=== PATIENT | female | born 1985 | race Caucasian/White ===

== ENCOUNTER 2021-03-02 12:57 | Outpatient (CLI) | payer OTHER | END 2021-03-02 12:58 | disposition home or self-care (01) | LOC: BICMRI 12:57 | PROVIDERS: ATTEND Family Medicine | DX: M51.37 Other intervertebral disc degeneration, lumbosacral region (principal); S34.9XXA Injury of unspecified nerves at abdomen, lower back and pelvis level, initial encounter; M54.40 Lumbago with sciatica, unspecified side; M51.27 Other intervertebral disc displacement, lumbosacral region; M47.816 Spondylosis without myelopathy or radiculopathy, lumbar region; M48.07 Spinal stenosis, lumbosacral region; Q05.7 Lumbar spina bifida without hydrocephalus | CPT/HCPCS: 72158 ==

== ENCOUNTER 2021-11-02 15:42 | Outpatient (CLI) | payer OTHER | END 2021-11-02 15:43 | disposition home or self-care (01) | LOC: SCSRAD 15:42 | PROVIDERS: ATTEND Neurological Surgery | DX: M54.16 Radiculopathy, lumbar region (principal) | CPT/HCPCS: 72100 ==

== ENCOUNTER 2021-12-27 14:32 | Outpatient (CLI) | payer OTHER | END 2021-12-27 14:33 | disposition home or self-care (01) | LOC: TBSIIMAG 14:32 | PROVIDERS: ATTEND Neurological Surgery | DX: M51.16 Intervertebral disc disorders with radiculopathy, lumbar region (principal); M51.17 Intervertebral disc disorders with radiculopathy, lumbosacral region | CPT/HCPCS: 72148 ==

== ENCOUNTER 2022-01-10 11:57 | Outpatient (CLI) | payer OTHER ==
[2022-01-10 13:50] LABS: Hemoglobin 12.2 g/dL (12.0-15.5); Mean Corpuscular HGB CONC 33.4 g/dL (32.0-36.0); Mean Corpuscular Hemoglobin 30.8 pg (27.0-33.0); Mean Corpuscular Volume 92.2 fl (81.6-98.3); Mean Platelet Volume 8.5 fl (7.4-10.4); Platelet Count 458 10x3/uL (150-450); RBC Distribution Width 12.3 % (11.5-14.5); Red Blood Cell (RBC) Count 3.96 10x6/uL (3.90-5.03); White Blood Cell (WBC) Count 8.6 10x3/uL (3.5-10.5)
[2022-01-10 14:04] LABS: INR-International Normal Ratio 0.9; PTT 30.7 sec (22.0-33.0)
[2022-01-10 22:46] LABS: SARS-CoV-2 PCR by NAA Not Detected (NotDetected)
== END 2022-01-10 11:58 | disposition home or self-care (01) ==
LOC: LABBT 11:57
PROVIDERS: ATTEND Neurological Surgery
DX: Z01.812 Encounter for preprocedural laboratory examination (principal); M51.27 Other intervertebral disc displacement, lumbosacral region; Z20.822 Contact with and (suspected) exposure to COVID-19
CPT/HCPCS: 85027; 85610; 85730; U0003; U0005

== ENCOUNTER 2022-01-15 05:37 | Day surgery (SDC) | payer OTHER ==
[2022-01-10 14:08] VITALS: BMI 25.9
[2022-01-15] MEDS ORDERED: Neomycin-Polymyxin 1 ML AMP ONE (06:10)
[2022-01-15] MEDS ORDERED: Bupivacaine PF 0.5% 30 ML VIAL ONE (06:10)
[2022-01-15] MEDS ORDERED: Thrombin 5000 UNITS/5 ML VIAL ONE (06:10)
[2022-01-15] MEDS ORDERED: EPINEPHrine 1 MG/ML AMP ONE (06:10)
[2022-01-15] MEDS ORDERED: SUGAMMADEX SODIUM 200 MG/2 ML VIAL ONE (06:18)
[2022-01-15] MEDS ORDERED: Fentanyl 250 MCG/5 ML VIAL ONE ×2 (06:18→09:33)
[2022-01-15] MEDS ORDERED: Promethazine HCl 25 MG/ML VIAL ONE (06:19)
[2022-01-15] MEDS ORDERED: Midazolam HCl 2 mg/2 ml Vial ONE (06:44)
[2022-01-15] MEDS ORDERED: Scopolamine 1.5 mg/72 hour Patch ONE (06:44)
[2022-01-15] MEDS ORDERED: Rocuronium Bromide 10 MG/ML (10ML VIAL) ONE (07:01)
[2022-01-15] MEDS ORDERED: Ondansetron PF 4 MG/2 ML Vial ONE (07:01)
[2022-01-15] MEDS ORDERED: Ketorolac Tromethamine 30 MG/ML VIAL ONE (07:01)
[2022-01-15] MEDS ORDERED: Lidocaine 1% PF 5 ML VIAL ONE (07:01)
[2022-01-15] MEDS ORDERED: PROPOFOL 200 MG/20 ML VIAL ONE (07:01)
[2022-01-15] MEDS ORDERED: Dexamethasone 20 MG/5 ML VIAL ONE (07:01)
[2022-01-15] MEDS ORDERED: Esmolol 100 MG/10 ML VIAL ONE (07:01)
[2022-01-15] MEDS ORDERED: Glycopyrrolate 0.2 MG/ML 5 ML SYRINGE ONE (07:01)
[2022-01-15] MEDS ORDERED: HYDROcodone/Acetaminophen 5/325 mg Tablet ONE (11:09)
== END 2022-01-15 12:28 | disposition home or self-care (01) ==
LOC: SDC 05:37
PROVIDERS: ATTEND Neurological Surgery
PROC: 0SB40ZZ Excision of Lumbosacral Disc, Open Approach (ICD-10-PCS; principal; 2022-01-15)
DX: M51.17 Intervertebral disc disorders with radiculopathy, lumbosacral region (principal); M51.36 Other intervertebral disc degeneration, lumbar region; M48.061 Spinal stenosis, lumbar region without neurogenic claudication; F17.200 Nicotine dependence, unspecified, uncomplicated; Z79.899 Other long term (current) drug therapy; Z88.2 Allergy status to sulfonamides
CPT/HCPCS: 76000; J0171; J1100; J1885; J2250; J2405; J2550; J2704; J3010; J3370; S0020

== ENCOUNTER 2025-03-01 21:22 | Emergency (ER) | payer OTHER, SELFPAY ==
[2025-03-01] MEDS ORDERED: Ondansetron PF 4 MG/2 ML Vial ONE (22:40)
[2025-03-01] MEDS ORDERED: Lactulose 20 GM (30 mL) UDCUP ONE (22:40)
[2025-03-01 22:57] LABS: Bacteria/HPF None Seen HPF (None Seen); CAUTI Indications for Culture Fever or rigors; Glucose, Urine (Dipstick) Normal (Negative); Leukocyte Negative Leu/uL (Negative); Protein, Urine (Dipstick) Negative (Neg-Trace); RBC/HPF 0-3 HPF (0-3); Specific Gravity, Urine 1.011 (1.002-1.036); WBC/HPF 0-3 HPF (0-3)
[2025-03-01 23:05] LABS: BHCG - Serum Negative (NEGATIVE); Pregs Control Background? CLEAR/WHITE (CLR/WHITE); Pregs Control Bar Appear? YES (CONTROL BAR)
[2025-03-01 23:20] LABS: Urine Culture Reflex No No
[2025-03-01 23:23] LABS: Hematocrit 37.1 % (36.0-47.0); Hemoglobin 12.8 g/dL (12.0-16.0); Mean Corpuscular Hemoglobin 30.8 pg (27.0-31.0); Mean Corpuscular Volume 89.2 fL (78.0-98.0); Platelet Count 408 10x3/uL (130-400); Red Blood Cell (RBC) Count 4.16 mill/uL (4.20-5.40); White Blood Cell (WBC) Count 10.29 10x3/uL (4.8-10.8)
[2025-03-01 23:39] LABS: ALT (SGPT) 45 U/L (Less than 34); AST (SGOT) 107 U/L (11-34); Albumin 3.1 g/dL (3.1-4.5); Alkaline Phosphatase 274 U/L (40-110); Anion Gap 12 mmol/L (10-20); BUN (Urea Nitrogen) 9 mg/dL (7.0-18.7); Bilirubin, Total 0.4 mg/dL (0.3-1.2); Calc. Creatinine Clearance 0 mL/min (70-130); Calcium 8.0 mg/dL (7.8-10.44); Carbon Dioxide 22 mmol/L (22-29); Chloride 99 mmol/L (98-107); Globulin 3.9 g/dL (2.4-3.5); Glucose 118 mg/dL (70-105); Potassium 4.6 mmol/L (3.5-5.1); Sodium 128 mmol/L (136-145)
[2025-03-01 23:47] LABS: Platelet Adequacy Comment Platelets Normal; RBC Morphology Within Normal Limits; Smudge Cells 26.0 %
== END 2025-03-02 02:38 | disposition home or self-care (01) ==
LOC: ERS 21:22
DX: K59.00 Constipation, unspecified (principal); M54.50 Low back pain, unspecified; G89.29 Other chronic pain; R11.2 Nausea with vomiting, unspecified; R50.9 Fever, unspecified; F17.290 Nicotine dependence, other tobacco product, uncomplicated
CPT/HCPCS: 71045; 76705; 80053; 81001; 83605; 84703; 85025; 87040; 87086; 94760; 96361; 96374; 96375; J2270; J2405

== ENCOUNTER 2025-05-15 17:09 | Day surgery (SDC) | payer SELFPAY ==
[2025-05-15] MEDS ORDERED: Rocuronium Bromide 10 MG/ML (10ML VIAL) ONE (17:27)
[2025-05-15] MEDS ORDERED: Lidocaine 1% PF 5 ML VIAL ONE (17:27)
[2025-05-15] MEDS ORDERED: PROPOFOL 200 MG/20 ML VIAL ONE (17:27)
[2025-05-15] MEDS ORDERED: SUCCINYLCHOLINE/SOD CL,ISO/PF 200 MG/10 ML SYRINGE FS ONE (17:27)
[2025-05-15] MEDS ORDERED: Ondansetron PF 4 MG/2 ML Vial ONE (17:27)
[2025-05-15] MEDS ORDERED: Bupivacaine 0.25% HCL 30 ML VIAL ONE (18:07)
[2025-05-15] MEDS ORDERED: Ketorolac Tromethamine 30 MG (1 mL) VIAL ONE (18:37)
== END 2025-05-15 19:30 | disposition home or self-care (01) ==
LOC: SDC 17:09
PROVIDERS: ATTEND Surgery
PROC: 0DTJ4ZZ Resection of Appendix, Percutaneous Endoscopic Approach (ICD-10-PCS; principal; 2025-05-15)
DX: K35.33 Acute appendicitis with perforation, localized peritonitis, and gangrene, with abscess (principal); F17.290 Nicotine dependence, other tobacco product, uncomplicated; Z90.710 Acquired absence of both cervix and uterus; Z88.2 Allergy status to sulfonamides
CPT/HCPCS: 88304; A4649; J0169; J0665; J1100; J1885; J2405; J2704